=== PATIENT | male | born 1955 | race Caucasian/White ===

== ENCOUNTER → 2020-02-04 14:16 | Outpatient (CLI) | payer MEDICARE, SELFPAY ==
--- NOTE | ~2020-02-04 | XR_ITS ---
[id number] DATE: 02/04/2020 14:49 INDICATION: Chest wall pain TECHNIQUE: PA chest. 4 views of the left ribs. COMPARISON: None FINDINGS: Normal heart size. No hilar or mediastinal enlargement. There is mild aortic ectasia, calci fication and unfolding. No pulmonary infiltrate or consolidation, pleural effusion or pulmonary vascular congestion or pneumo thorax. No left rib fracture or bone destruction is detected. Degenerative changes of the thoracic and to a greater extent lumbar spine IMPRESSION: No active cardiopulmonary disease No significant abnormality of the left rib cage Reviewed, dictated and finalized at [facility]. Reviewed, dictated and finalized at [facility].
== END ==
PROVIDERS: PCP Family Medicine
DX: R07.81 Pleurodynia (principal)
CPT/HCPCS: 71101